=== PATIENT | male | born 1950 | race Caucasian/White ===

== ENCOUNTER 2017-01-03 08:46 | Day surgery (SDC) | payer MEDICARE ==
[2015-03-31 12:09] VITALS: BMI 29.0
[2017-01-03] MEDS ORDERED: Lactated Ringer's 500 ML IV ONE (09:16)
[2017-01-03 09:23] VITALS: TEMP 96.7; O2SAT 100
[2017-01-03] MEDS ORDERED: Propofol 10 mg/ml Inj (20 ML) ONE (09:28)
[2017-01-03 11:25] VITALS: BP 116/67; PULSE 58; RESP 14
== END 2017-01-03 11:26 | disposition home or self-care (01) ==
LOC: H.ENDO 08:46
PROVIDERS: ATTEND Internal Medicine Gastroenterology
DX: K27.9 Peptic ulcer, site unspecified, unspecified as acute or chronic, without hemorrhage or perforation (principal); K29.50 Unspecified chronic gastritis without bleeding; K31.9 Disease of stomach and duodenum, unspecified; E78.5 Hyperlipidemia, unspecified; Z87.891 Personal history of nicotine dependence; Z87.19 Personal history of other diseases of the digestive system; K29.71 Gastritis, unspecified, with bleeding
CPT/HCPCS: 43239; 88305; J2001; J2704; J7120